=== PATIENT | male | born 1965 | race Caucasian/White ===

== ENCOUNTER 2017-09-02 13:10 | Emergency (ER) | payer SELFPAY ==
--- NOTE | 2017-09-02 15:02 | EDPHY ---
H & P Stated Complaint: Hit head Time Seen by Provider: 09/02/17 15:02 - Personal History Tetanus Vaccine Date: UTD - Medical/Surgical History Hx Asthma: No Hx Chronic Respiratory Disease: No Hx Diabetes: No Hx Cardiac Disease: No Hx Renal Disease: No Hx Cirrhosis: No Hx Alcoholism: No Hx HIV/AIDS: No Hx Splenectomy or Spleen Trauma: No Other PMH: neg - Social History Smoking Status: Never smoked Constitutional: Initial Vital Signs Temperature (C) 36.6 C 09/02/17 13:21 Heart Rate 64 09/02/17 13:21 Respiratory Rate 18 09/02/17 13:21 Blood Pressure 135/75 H 09/02/17 13:21 O2 Sat (%) 95 09/02/17 13:21 O2 Delivery Mode Room Air Allergies/Adverse Reactions: No Known Allergies Allergy (Verified 01/13/16 16:41) Home Medications: Medication Instructions Recorded Ciprofloxacin [Ciloxan Opht Drops] 1 drops OP Q2 2 Days opht.btl 01/13/16 Hydrocodone/APAP 5/325 [Oblong 1 tab PO Q4 #10 tab 01/13/16 5/325] Medical Decision Making - Diagnostics Imaging Results: Imaging Impressions Head CT 09/02/17 15:47 Impression: No acute intracranial findings. Findings discussed with Car Mcadams MD 09/02/2017 at 16:36. Imaging: Discussed imaging studies w/ wheelage clerk Radiologist, I viewed and interpreted images myself ED Course/Re-evaluation: CHIEF COMPLAINT: "I hit my head" HISTORY OF PRESENT ILLNESS: The patient is a 52 y/o male arriving with his for evaluation of head injury after striking it while snowboarding yesterday. He has multiple concussions and his says he has signs of CTE. He cannot remember the incident at all or the time preceding it, but it was witnessed by his son. He was helmeted and eventually was able to snowboard down the slope on his own. He may have lost consciousness. He currently has a headache and neck pain. He denies vision changes, weakness, paresthesias, or other complaints. REVIEW OF SYSTEMS: A 10 point review of systems was performed and is negative with the exception of the elements mentioned in the history of present illness. PHYSICAL EXAM: HR, BP, O2 Sat, RR. Temp noted General Appearance: Alert, well hydrated, appropriate, and non-toxic appearing. Head: Atraumatic without scalp tenderness or obvious injury Eyes: Pupils equal, round, reactive to light and accommodation, EOMI, no trauma , no injection. Nose: Atraumatic, no rhinorrhea, clear. Throat: Mucus membranes moist. Neck: Supple, nontender, no lymphadenopathy. Respiratory: No retractions, no distress, no wheezes, and no accessory muscle use. Lungs are clear to auscultation bilaterally. Cardiovascular: Regular rate and rhythm, no murmurs, rubs, or gallops. Good capillary refill all extremities. Gastrointestinal: Abdomen is soft, nontender, non-distended, no masses, no rebound, no guarding, no peritoneal signs. Musculoskeletal: Normal active ROM of all extremities, atraumatic. Neurological: Alert, appropriate, and interactive. The patient has non-focal cranial nerves, motor, sensory, and cerebellar exam. Skin: No rashes, good turgor, no nodules on palpation. Past medical history: Multiple prior concussions, possible CTE Past surgical history: Noncontributory Family history: Noncontributory Social history: at bedside. Has son. DIAGNOSTICS/PROCEDURES/CRITICAL CARE TIME: Head and neck CTs: negative DIFFERENTIAL DIAGNOSIS: The differential diagnosis for the patient's head injury included but was not limited to concussion, skull fracture, intra- parenchymal contusion, subarachnoid, subdural and epidural hematoma. MEDICAL DECISION MAKING: This is a 52 y/o male with history of multiple concussions who presents for amnesia and headache following head injury yesterday. He has a normal neurologic exam. No visible trauma. Presentation is consistent with post concussive syndrome, but due to possible loss of consciousness, amnesia, and midline neck pain I've recommended a head and neck CTs to rule out acute intracranial or spinal issue, which he agrees to. CTs are negative for acute process. Exam remains unchanged. He will be discharged home with standard post-concussive syndrome care and follow up instructions. Return precautions discussed. He is comfortable with this plan. Departure - Departure Disposition: Home, Routine, Self-Care Clinical Impression: Post concussive syndrome Head injury Qualifiers: Encounter type: initial encounter Qualified Code(s): S09.90XA - Unspecified injury of head, initial encounter Instructions: Concussion (ED), Post Concussion Syndrome (ED) Additional Instructions: 1. Cognitive rest while symptoms are present. Avoid screens including TV, phone , computer, video games until symptoms improve. 2. Physical rest while symptoms are present. Avoid any activities that could put you at risk for recurrent head injury for the next 10-14 days or longer if symptoms persist. No contact sports, skiing/snowboarding, bicycling, etc. 3. Follow up with Dr. Freeman, head injury specialist, in the next 1-2 weeks. 4. Return to the ED for worsening of condition. Referrals: Vannessa Freeman MD [Medical Doctor] - As per Instructions Report Scribed for: Car Mcadams Report Scribed by: Jeny Ashton Date of Report: 09/02/17 Time of Report: 16:41
[2017-09-02 16:50] VITALS: BP 148/76; PULSE 81; RESP 16; TEMP 98.6; O2SAT 97
== END 2017-09-02 16:50 | disposition home or self-care (01) ==
DX: S09.90XA Unspecified injury of head, initial encounter (principal); F07.81 Postconcussional syndrome; V00.318A Other snowboard accident, initial encounter; Y93.23 Activity, snow (alpine) (downhill) skiing, snowboarding, sledding, tobogganing and snow tubing

== ENCOUNTER 2018-12-22 15:49 | Emergency (ER) | payer MEDICAID ==
--- NOTE | 2018-12-22 17:08 | EDPHY ---
H & P Time Seen by Provider: 12/22/18 16:29 HPI/ROS: CHIEF COMPLAINT: Right hip pain HISTORY OF PRESENT ILLNESS: The patient is a 53-year-old male presents emergency department right hip pain. The pain starts in his right buttock and moves down to his right ankle. The pain is severe. It is worse with movement. The patient went to a chiropractor today was sent to the emergency department for further evaluation. The patient states that he fell off a ladder approximately 6 weeks ago. He did land on his buttocks. He has been able to ambulate since that time. The right hip pain radiating to his ankle has started more recently. Patient has had no incontinence. Patient denies any foot weakness or numbness. No fevers or chills. The patient also complains of bilateral wrist pain, left knee pain. These have been ongoing and chronic. REVIEW OF SYSTEMS: 10 systems were reveiwed and are negative with the exception of the elements mentioned in the history of present illness. Past Medical/Surgical History: Includes appendectomy Smoking Status: Never smoked Physical Exam: Vitals noted GENERAL: Well-appearing, in no acute distress, alert. HEENT: Eyes normal to inspection, normal pharynx, no signs of dehydration. NECK: Normal, supple. RESPIRATORY: Clear to auscultation bilaterally, no rales, rhonchi or wheezing. CVS: Regular rate and rhythm, no rubs, murmurs, or gallops. ABDOMEN: Soft, nontender, nondistended, no organomegaly. BACK: Normal to inspection, no CVA tenderness. Negative leg raise bilaterally. SKIN: Normal color, no rash, warm, dry. No pallor. EXTREMITIES: Patient's right upper extremity is notable for no wrist tenderness palpation. No snuffbox tenderness. Full range of motion. Patient' s left upper extremity is normal. There is no wrist or hand tenderness to palpation. No snuffbox tenderness. Full range of motion. Patient's left knee has no tenderness palpation. Patient is ambulating without difficulty. Full range of motion. No ligamentous instability. No pedal edema, no joint swelling. NEURO/PSYCH: Alert and oriented, normal mood and affect, normal motor sensory exam. Constitutional: Initial Vital Signs Temperature (C) 36.7 C 12/22/18 15:55 Heart Rate 82 12/22/18 15:55 Respiratory Rate 16 12/22/18 15:55 Blood Pressure 140/80 H 12/22/18 15:55 O2 Sat (%) 92 12/22/18 15:55 O2 Delivery Mode Room Air Allergies/Adverse Reactions: No Known Allergies Allergy (Verified 12/22/18 15:55) Home Medications: Medication Instructions Recorded Ciprofloxacin 0.3% [Ciloxan Opht 1 drops OP Q2 2 Days opht.btl 01/13/16 Drops] Hydrocodone/APAP 5/325 [Lloyd 1 tab PO Q4 #10 tab 01/13/16 5/325] Cyclobenzaprine [Flexeril] 10 mg PO TID #15 tab 12/22/18 oxyCODONE/APAP 5/325 [Percocet 1 - 2 tab PO Q4PRN PRN #11 tab 12/22/18 5/325 (*)] predniSONE 20 mg PO DAILY 4 Days tab 12/22/18 Medical Decision Making - Diagnostics Imaging Results: Imaging Impressions Hip X-Ray 12/22/18 17:04 Impression: Possible right acetabular fracture. Consider noncontrast CT for further evaluation. Pelvis CT 12/22/18 17:41 Impression: 1. No evidence of acute fracture within the right hip or acetabulum. The previously identified lucent line within the right acetabulum appears to represent an artifact. 2. Bilateral hip and sacroiliac joint osteoarthritis. Results called to Aline Porter M.D., at 6:15 p.m. on December 22, 2018. ED Course/Re-evaluation: In the emergency department discussed possible etiologies with the patient. I answered all his questions. The patient had an x-ray of his right hip and pelvis. This was due to the fall 6 weeks ago and pain. Hip/pelvis x-ray: Please refer the dictated report by Dr. Mendiola. He felt there was potentially in abnormality. He recommended CT imaging. This was ordered. Pelvis CT: Please refer the dictated report by Dr. Ochoa. No acute abnormality. I discussed the results with the patient. I answered all his questions. Patient will be given follow-up with Orthopedics. They can evaluate his bilateral wrist pain and his left knee pain. I do not feel he needs imaging in the emergency department. He ambulates without difficulty. He is fully able to move his wrist without difficulty. He has no tenderness palpation on exam. I discussed this at length with the patient. He was given warnings prior to leaving. He will return with worsening symptoms. Differential Diagnosis: My differential includes but is not limited to fracture, dislocation, contusion , disc herniation, sciatica, cauda equina syndrome, neuro surgical emergency, carpal tunnel syndrome, meniscus injury, knee sprain The patient has had ongoing bilateral wrist in ongoing knee pain. I do not feel these are acute injuries. I do not feel he needs emergency department imaging. The patient was able ambulate on his knee. The patient is able to move his wrist fully with no tenderness to palpation. - Data Points Medications Given: Discontinued Medications Cyclobenzaprine HCl (Flexeril) 10 mg PO EDNOW ONE Stop: 12/22/18 18:01 Last Admin: 12/22/18 18:21 Dose: 10 mg Oxycodone/Acetaminophen (Percocet 5/325) 2 tab PO EDNOW ONE Stop: 12/22/18 18:01 Last Admin: 12/22/18 18:21 Dose: 2 tab Prednisone (Prednisone) 60 mg PO EDNOW ONE Stop: 12/22/18 18:01 Last Admin: 12/22/18 18:21 Dose: 60 mg Departure - Departure Disposition: Home, Routine, Self-Care Clinical Impression: Sciatica Qualifiers: Laterality: right Qualified Code(s): M54.31 - Sciatica, right side Condition: Fair Instructions: Sciatica (ED) Additional Instructions: Return with increasing pain, weakness, numbness, incontinence other concerns Referrals: Jann Roberts MD [Medical Doctor] - 5-7 days, call for appt. Tristan Kuhn MD [Medical Doctor] - 5-7 days, call for appt. Prescriptions: Cyclobenzaprine [Flexeril] 10 mg PO TID #15 tab oxyCODONE/APAP 5/325 [Percocet 5/325 (*)] 1 - 2 tab PO Q4PRN PRN #11 tab PRN Reason: For Moderate To Severe Pain predniSONE 20 mg PO DAILY 4 Days tab
[2018-12-22] MEDS ORDERED: predniSONE 20 MG TAB PO ONE (18:00)
[2018-12-22] MEDS ORDERED: CYCLOBENZAPRINE 10 MG TAB PO ONE (18:00)
[2018-12-22] MEDS ORDERED: OXYCODONE/APAP 5/325 TAB PO ONE (18:00)
[2018-12-22 18:23] VITALS: BP 132/72
== END 2018-12-22 18:59 | disposition home or self-care (01) ==
DX: M16.0 Bilateral primary osteoarthritis of hip (principal); M54.31 Sciatica, right side
CPT/HCPCS: J7512